=== PATIENT | female | born 1990 | race Caucasian/White ===

== ENCOUNTER 2017-04-30 17:48 | Emergency (ER) | payer OTHER ==
[~2017-04-30] VITALS: Ht 162.6 cm; Wt 109.1 kg
[2017-04-30] MEDS ORDERED: TYLE325T5 PO (17:56)
[2017-04-30] MEDS ORDERED: IBUP-1022 PO (17:56)
[2017-04-30] MEDS ORDERED: MUCI600T37 PO (17:56)
[2017-04-30] MEDS ORDERED: FLON1SPR (19:41)
[2017-04-30] MEDS ORDERED: AUGM875T28 PO (19:41)
[2017-04-30 19:50] VITALS: BP 145/61
== END 2017-04-30 19:51 | disposition home or self-care (01) ==
LOC: M ED 17:48
DX: H66.003 Acute suppurative otitis media without spontaneous rupture of ear drum, bilateral (principal); Z72.0 Tobacco use

== ENCOUNTER 2017-07-07 20:49 | Emergency (ER) | payer OTHER ==
[~2017-07-07] VITALS: Ht 162.6 cm; Wt 113.6 kg
[~2017-07-07 20:49] MED LIST: AUGM875T28 PO; FLON1SPR; IBUP-1022 PO; MUCI600T37 PO; TYLE325T5 PO
[2017-07-07 20:53] VITALS: BP 140/83
[2017-07-07] MEDS ORDERED: HYDROCO/APAP PO (20:59)
[2017-07-07] MEDS ORDERED: TIZA4CAP3 PO (20:59)
[2017-07-07] MEDS ORDERED: GI COCKTAIL 50ML BTL(HYOSCYAMINE/MAALOX/LIDOCAINE VISCOUS)(1:3:1) PO ONE (21:15)
[2017-07-07] MEDS ORDERED: SM A PO (21:58)
[2017-07-07] MEDS ORDERED: FAMOTIDINE 20 MG TAB PO ONE (22:00)
== END 2017-07-07 22:03 | disposition home or self-care (01) ==
LOC: M ED 20:49
DX: K21.9 Gastro-esophageal reflux disease without esophagitis (principal); Z72.0 Tobacco use

== ENCOUNTER 2017-09-21 10:51 | Day surgery (SDC) | payer OTHER ==
[2017-09-21] MEDS: LR 1,000 ML IV (12:06)
[2017-09-21] MEDS ORDERED: MIDAZOLAM INJ 2 MG/2 ML VIAL (J2250) As Ordered (12:19)
[2017-09-21] MEDS ORDERED: PROPOFOL 200 MG/20 ML VIAL As Ordered (12:19)
[2017-09-21] MEDS ORDERED: fentaNYL 100 MCG/2 ML INJECTION (J3010) As Ordered ×2 (12:19→14:16)
[2017-09-21] MEDS ORDERED: LIDOCAINE 2% INJ 100 MG/5 ML SDV (FOR ANES.) As Ordered (12:19)
[2017-09-21] MEDS ORDERED: ROCURONIUM BROMIDE 50 MG/5 ML VIAL As Ordered (12:19)
[2017-09-21] MEDS ORDERED: ONDANSETRON 4MG/2ML VIAL (J2405) As Ordered ×2 (13:14→14:16)
[2017-09-21] MEDS ORDERED: dexameTHASONE 4 MG/ML 1ML VIAL (J1100) As Ordered (13:14)
[2017-09-21] MEDS ORDERED: METOCLOPRAMIDE INJ 10MG/2ML VIAL (J2765) As Ordered (13:14)
[2017-09-21] MEDS ORDERED: KETOROLAC 60 MG/2 ML VIAL (J1885) As Ordered (13:14)
[2017-09-21] MEDS ORDERED: GLYCOPYRROLATE INJ 0.2 MG/ML 2 ML VIAL As Ordered (13:42)
[2017-09-21] MEDS ORDERED: NEOSTIGMINE 10 MG/10 ML VIAL (J2710) As Ordered (13:42)
[2017-09-21] MEDS: LIDOCAINE W/EPINEPHRINE 1% 20ML VIAL As Ordered (14:07)
[2017-09-21] MEDS: BUPIVACAINE HCL 0.25% 30 ML VIAL As Ordered (14:08)
[2017-09-21] MEDS: fentaNYL 100 MCG/2 ML INJECTION (J3010) IV ×4 (14:18→14:35)
[2017-09-21] MEDS: PERCOCET 5MG/325MG TAB PO ×2 (14:43→15:44)
[2017-09-21] MEDS ORDERED: LR 1,000 ML IV (14:45)
[2017-09-21] MEDS ORDERED: NORCO, ANEXSIA 5/325MG TABLET (HYDROcodone/ACETAMINOPHEN) PO (14:45)
== END 2017-09-21 16:00 | disposition home or self-care (01) ==
LOC: M SDC 10:51
DX: K80.18 Calculus of gallbladder with other cholecystitis without obstruction (principal); K21.9 Gastro-esophageal reflux disease without esophagitis; F32.9 Major depressive disorder, single episode, unspecified; E66.01 Morbid (severe) obesity due to excess calories; F17.210 Nicotine dependence, cigarettes, uncomplicated
CPT/HCPCS: 47562

== ENCOUNTER 2017-10-13 13:46 | Emergency (ER) | payer OTHER | END 2017-10-13 15:39 | disposition left against medical advice (07) | LOC: M ED 13:46 | DX: Z53.21 Procedure and treatment not carried out due to patient leaving prior to being seen by health care provider (principal) ==

== ENCOUNTER → 2017-11-13 | Outpatient (REF) | payer OTHER | LOC: M SFHCLERA 14:37 | DX: R30.0 Dysuria (principal) ==

== ENCOUNTER 2018-04-29 10:52 | Day surgery (SDC) | payer OTHER ==
[2018-04-29] MEDS ORDERED: PROPOFOL 200 MG/20 ML VIAL As Ordered ×2 (12:09→13:42)
[2018-04-29] MEDS ORDERED: LIDOCAINE 2% INJ 100 MG/5 ML SDV (FOR ANES.) As Ordered (12:09)
[2018-04-29] MEDS ORDERED: ROCURONIUM BROMIDE 50 MG/5 ML VIAL As Ordered (12:09)
[2018-04-29] MEDS ORDERED: ONDANSETRON 4MG/2ML VIAL (J2405) As Ordered (12:09)
[2018-04-29] MEDS ORDERED: MIDAZOLAM INJ 2 MG/2 ML VIAL (J2250) As Ordered (12:10)
[2018-04-29] MEDS ORDERED: fentaNYL 100 MCG/2 ML INJECTION (J3010) As Ordered ×2 (12:10→14:08)
[2018-04-29] MEDS ORDERED: OXYMETAZOLINE NASAL SPRAY (AFRIN) As Ordered (13:20)
[2018-04-29] MEDS: dexameTHASONE 4 MG/ML 1ML VIAL (J1100) IV (13:38)
[2018-04-29] MEDS: AMPICILLIN SOD/SULBACTAM SOD 3 GM in D5W MINI-BAG PLUS 100 ML IV (13:40)
[2018-04-29] MEDS: LIDOCAINE 2% W/ EPINEPHRINE 1.7 ML DENTAL INJ As Ordered (13:50)
[2018-04-29] MEDS ORDERED: NEOSTIGMINE 10 MG/10 ML VIAL (J2710) As Ordered (13:54)
[2018-04-29] MEDS ORDERED: GLYCOPYRROLATE INJ 0.2 MG/ML 2 ML VIAL As Ordered (13:54)
[2018-04-29] MEDS: PERCOCET 5MG/325MG TAB PO (14:58)
[2018-04-29] MEDS ORDERED: fentaNYL 100 MCG/2 ML INJECTION (J3010) IV (15:00)
[2018-04-29] MEDS ORDERED: LR 1,000 ML IV (15:00)
[2018-04-29] MEDS ORDERED: ONDANSETRON 4MG/2ML VIAL (J2405) IV (15:00)
== END 2018-04-29 15:46 | disposition home or self-care (01) ==
LOC: M SDC 15:46
DX: K02.9 Dental caries, unspecified (principal); K01.1 Impacted teeth; F40.232 Fear of other medical care; K21.9 Gastro-esophageal reflux disease without esophagitis; R06.83 Snoring; E66.9 Obesity, unspecified; Z68.41 Body mass index [BMI] 40.0-44.9, adult; Z79.899 Other long term (current) drug therapy; Z72.0 Tobacco use; Z98.51 Tubal ligation status; Z87.891 Personal history of nicotine dependence
CPT/HCPCS: D9223

== ENCOUNTER → 2018-08-04 | Outpatient (REF) | payer OTHER ==
[~2018-08-04] MED LIST changes: +HYDR-3713 PO; +HYDROCO/APAP PO; +IBUP80TA PO; +RANI300T PO; +SM A PO; +TIZA4CAP PO
== END ==
LOC: M SFHCLERA 14:45
PROVIDERS: ATTEND Physician Assistant
DX: J02.9 Acute pharyngitis, unspecified (principal)

== ENCOUNTER → 2018-08-15 | Outpatient (REF) | payer OTHER | LOC: M SFHCLERA 18:44 | PROVIDERS: ATTEND Physician Assistant | DX: N89.8 Other specified noninflammatory disorders of vagina (principal) ==

== ENCOUNTER → 2018-11-01 | Outpatient (CLI) | payer OTHER ==
[~2018-11-01] MED LIST changes: +E-Z-GAS II EFFERVESCENT PACKET (SODIUM BICARB./CITRIC ACID/SIMETHICONE) As Ordered ONE; +E-Z-HD 98% w/w 340GM SUSP BTL As Ordered ONE; +E-Z-PAQUE 96% w/w SUSP 176GM BTL As Ordered ONE
--- NOTE | 2018-11-01 16:37 | REP ---
Upper GI air contrast The procedure was performed under the direct supervision of Dr. Grajeda. The images were reviewed with Dr. Grajeda The manager education film shows no organomegaly or pathological masses. The intestinal gas pattern is non-specific. Liquid barium and gas producing crystals were given in the erect position as well as liquid barium in the prone oblique position in order to perform a double contrast upper GI examination. The oral and pharyngeal stages of deglutition are unremarkable. Esophageal transport is prompt and efficient and there is no esophagitis, stricture, mucosal ring or hiatal hernia. Gastroesophageal reflux is not demonstrated on this examination. The stomach barroso are normally outlined . The rugal folds are smooth and regular. There is no gastritis neoplasm or ulcer disease. The duodenal barroso are normally outlined . The mucosal folds are smooth and regular. There is no duodenitis pancreatitis peptic ulcer disease or neoplasm. The visualized portion of the proximal small bowel appears normal in course and caliber. Impression: Essentially unremarkable double contrast upper GI examination. 0.6 minutes of fluoro time was utilized for this procedure. Reviewed by PASHA Cleveland 11/01/2018 03:54 P Electronically Signed by Nik Grajeda MD 11/01/2018 04:28 P
== END ==
LOC: M RAD 08:48
PROVIDERS: ATTEND Otolaryngology
DX: Z87.19 Personal history of other diseases of the digestive system (principal)

== ENCOUNTER → 2018-12-10 | Outpatient (REF) | payer OTHER ==
[~2018-12-10] MED LIST changes: -E-Z-GAS II EFFERVESCENT PACKET (SODIUM BICARB./CITRIC ACID/SIMETHICONE) As Ordered ONE; -E-Z-HD 98% w/w 340GM SUSP BTL As Ordered ONE; -E-Z-PAQUE 96% w/w SUSP 176GM BTL As Ordered ONE
[2018-12-10 11:37] LABS: BASO # 0.1 10^3/uL (0.0-0.2); BASO % 0.7 % (0.0-1.0); EOS # 0.3 10^3/uL (0.0-0.50); EOS % 2.3 % (0.0-3.0); HEMATOCRIT 43.9 % (36.0-47.0); HEMOGLOBIN 14.3 g/dl (12.0-15.5); LYMPH % 32.8 % (24.0-44.0); MEAN CORPUSCULAR HEMOGLOBIN 29.6 pg (27.0-33.0); MEAN CORPUSCULAR HGB CONC 32.6 g/dl (32.0-36.5); MEAN CORPUSCULAR VOLUME 90.9 fl (80.0-96.0); MONO # 0.7 10^3/uL (0.0-0.8); MONO % 5.9 % (0.0-5.0); NEUTROPHILS # 6.9 10^3/uL (1.8-7.7); NEUTROPHILS % 57.6 % (36.0-66.0); PLATELET COUNT, AUTOMATED 328 10^3/uL (150-450); RED BLOOD COUNT 4.83 10^6/uL (4.00-5.40); WHITE BLOOD COUNT 12.1 10^3/uL (4.0-10.0)
[2018-12-10 12:19] LABS: ALBUMIN 3.4 GM/DL (3.2-5.2); ALT/SGPT 34 U/L (12-78); BILIRUBIN,TOTAL 0.3 MG/DL (0.2-1.0); BLOOD UREA NITROGEN 14 MG/DL (7-18); CALCIUM LEVEL 8.4 MG/DL (8.5-10.1); CARBON DIOXIDE LEVEL 24 MEQ/L (21-32); CHLORIDE LEVEL 107 MEQ/L (98-107); CHOLESTEROL LEVEL 171 MG/DL (<200); CHOLESTEROL RISK RATIO 6.576 (<5); CREATININE FOR GFR 0.91 MG/DL (0.55-1.30); FREE T4 1.04 NG/DL (0.76-1.46); GLOMERULAR FILTRATION RATE > 60.0 (>60); GLUCOSE, FASTING 94 MG/DL (70-100); HDL CHOLESTEROL 26 MG/DL (>40); LDL CHOLESTEROL 121 MG/DL (<100); NON-HDL-C 145 MG/DL; POTASSIUM SERUM 4.2 MEQ/L (3.5-5.1); SODIUM LEVEL 140 MEQ/L (136-145); TOTAL PROTEIN 7.1 GM/DL (6.4-8.2); TRIGLYCERIDES LEVEL 120 MG/DL (<150)
== END ==
LOC: M SFHCLERA 10:07
PROVIDERS: ATTEND Nurse Practitioner Family
DX: Z13.220 Encounter for screening for lipoid disorders (principal); R53.82 Chronic fatigue, unspecified

== ENCOUNTER → 2019-08-04 | Outpatient (REF) | payer OTHER ==
[~2019-08-04] MED LIST changes: +RA A PO; -SM A PO
== END ==
LOC: M SFHCLERA 19:05
PROVIDERS: ATTEND Nurse Practitioner Family
DX: J02.9 Acute pharyngitis, unspecified (principal)

== ENCOUNTER → 2021-04-19 | Outpatient (CLI) | payer OTHER ==
--- NOTE | 2021-04-19 12:27 | REP ---
INDICATION: PAIN/FALL INITIAL ENCOUNTER. COMPARISON: None. TECHNIQUE: Four views FINDINGS: The joint spaces are symmetric and relatively well maintained. There is no evidence of acute fracture or destructive osseous lesion. IMPRESSION: Negative hand. <Electronically signed by Brandon Serrato > 04/19/21 [id number]
[2021-04-19 16:40] LABS: BASO # 0.1 10^3/uL (0.0-0.2); BASO % 0.5 % (0.0-1.0); EOS # 0.2 10^3/uL (0.0-0.5); EOS % 1.8 % (0.0-3.0); HEMATOCRIT 46.3 % (36.0-47.0); HEMOGLOBIN 15.2 g/dl (12.0-15.5); LYMPH % 30.7 % (24.0-44.0); MEAN CORPUSCULAR HEMOGLOBIN 30.3 pg (27.0-33.0); MEAN CORPUSCULAR HGB CONC 32.8 g/dl (32.0-36.5); MEAN CORPUSCULAR VOLUME 92.4 fl (80.0-96.0); MONO # 0.8 10^3/uL (0.0-0.8); NEUTROPHILS # 7.8 10^3/uL (1.5-8.5); NEUTROPHILS % 60.5 % (36.0-66.0); PLATELET COUNT, AUTOMATED 356 10^3/uL (150-450); RED BLOOD COUNT 5.01 10^6/uL (4.00-5.40); WHITE BLOOD COUNT 12.9 10^3/uL (4.0-10.0)
[2021-04-19 16:48] LABS: ALBUMIN 3.2 GM/DL (3.2-5.2); ALT/SGPT 43 U/L (12-78); BILIRUBIN,TOTAL 0.3 MG/DL (0.2-1.0); BLOOD UREA NITROGEN 8 MG/DL (7-18); CALCIUM LEVEL 8.8 MG/DL (8.5-10.1); CARBON DIOXIDE LEVEL 28 MEQ/L (21-32); CHLORIDE LEVEL 107 MEQ/L (98-107); CHOLESTEROL LEVEL 188 MG/DL (<200); CHOLESTEROL RISK RATIO 6.266 (<5); CREATININE FOR GFR 0.75 MG/DL (0.55-1.30); GLOMERULAR FILTRATION RATE > 60.0 (>60); GLUCOSE, FASTING 157 MG/DL (70-100); HDL CHOLESTEROL 30 MG/DL (>40); LDL CHOLESTEROL 132 MG/DL (<100); NON-HDL-C 158 MG/DL; POTASSIUM SERUM 4.2 MEQ/L (3.5-5.1); SODIUM LEVEL 140 MEQ/L (136-145); TOTAL PROTEIN 6.6 GM/DL (6.4-8.2); TRIGLYCERIDES LEVEL 132 MG/DL (<150)
[2021-04-19 17:24] LABS: HEMOGLOBIN A1c 7.5 %
== END ==
LOC: M WUC 11:42
PROVIDERS: ATTEND Nurse Practitioner Family
DX: Z00.00 Encounter for general adult medical examination without abnormal findings (principal); M79.642 Pain in left hand; Z91.81 History of falling

== ENCOUNTER → 2021-04-22 | Outpatient (REF) | payer OTHER | LOC: M SFHCLERA 17:47 | PROVIDERS: ATTEND Nurse Practitioner Family | DX: Z09 Encounter for follow-up examination after completed treatment for conditions other than malignant neoplasm (principal); Z53.9 Procedure and treatment not carried out, unspecified reason ==

== ENCOUNTER → 2021-10-13 | Outpatient (REF) | payer OTHER | LOC: M SFHCLERA 11:18 | PROVIDERS: ATTEND Student in an Organized Health Care Education/Training Program | DX: Z12.4 Encounter for screening for malignant neoplasm of cervix (principal) ==

== ENCOUNTER → 2022-03-16 | Outpatient (CLI) | payer OTHER ==
[2022-03-16 17:32] LABS: BASO # 0.1 10^3/uL (0.0-0.2); BASO % 0.7 % (0.0-1.0); EOS # 0.2 10^3/uL (0.0-0.5); EOS % 1.8 % (0.0-3.0); HEMATOCRIT 45.4 % (36.0-47.0); HEMOGLOBIN 15.6 g/dl (12.0-15.5); LYMPH # 3.2 10^3/uL (1.5-5.0); LYMPH % 36.4 % (24.0-44.0); MEAN CORPUSCULAR HEMOGLOBIN 31.4 pg (27.0-33.0); MEAN CORPUSCULAR HGB CONC 34.4 g/dl (32.0-36.5); MEAN CORPUSCULAR VOLUME 91.3 fl (80.0-96.0); MONO # 0.7 10^3/uL (0.0-0.8); MONO % 7.6 % (2.0-8.0); NEUTROPHILS # 4.7 10^3/uL (1.5-8.5); NEUTROPHILS % 52.9 % (36.0-66.0); PLATELET COUNT, AUTOMATED 261 10^3/uL (150-450); RED BLOOD COUNT 4.97 10^6/uL (4.00-5.40); WHITE BLOOD COUNT 8.9 10^3/uL (4.0-10.0)
[2022-03-16 17:36] LABS: BLOOD UREA NITROGEN 8 MG/DL (7-18); CALCIUM LEVEL 8.9 MG/DL (8.5-10.1); CARBON DIOXIDE LEVEL 26 MEQ/L (21-32); CHLORIDE LEVEL 105 MEQ/L (98-107); CREATININE FOR GFR 0.64 MG/DL (0.55-1.30); GLOMERULAR FILTRATION RATE > 60.0 (>60); GLUCOSE, FASTING 320 MG/DL (70-100); POTASSIUM SERUM 4.1 MEQ/L (3.5-5.1); SODIUM LEVEL 136 MEQ/L (136-145)
[2022-03-16 17:51] LABS: MALB URINE SIEMENS 13.5 MG/L; MAU/CREAT RATIO 8.6 MCG/MG (0.0-30.0)
[2022-03-16 19:43] LABS: HEMOGLOBIN A1c 11.3 %
== END ==
LOC: M WUC 12:49
PROVIDERS: ATTEND Family Medicine
DX: E11.9 Type 2 diabetes mellitus without complications (principal); D72.829 Elevated white blood cell count, unspecified

== ENCOUNTER → 2022-04-19 | Outpatient (CLI) | payer OTHER | LOC: M WUC 11:04 | PROVIDERS: ATTEND Family Medicine | DX: E11.65 Type 2 diabetes mellitus with hyperglycemia (principal) ==

== ENCOUNTER 2024-06-11 10:03 | Day surgery (SDC) | payer OTHER ==
[~2024-06-11] VITALS: Ht 162.6 cm; Wt 99.8 kg
[~2024-06-11 10:03] MED LIST changes: +ARNU1INH INH; +DOXE75CA2 PO; +FEXO-117 PO; +HYDR-643 PO; +JARD1TAB PO; +MIDAZOLAM INJ 2MG/2ML VIAL As Ordered ONE; +OMEP-173 PO; +PHENYLEPHRINE 10% OPHTH SOL 5ML OS PRN; +PROA1AER2 INH; +TRUL0.5I SC; +VENL75CA47 PO; +fentaNYL 100 MCG/2 ML INJECTION As Ordered ONE
[2024-06-11] MEDS: ATROPINE SULFATE 1% OPHTH SOLN 2ML BTL OS SCH (10:38)
[2024-06-11] MEDS: LIDOCAINE 3.5 % 1ML OPHTH TOPICAL GEL OU ONE (10:38)
[2024-06-11] MEDS: OFLOXACIN 0.3 % (OCUFLOX) OPTH SOL 5ML OS ONE (10:38)
[2024-06-11] MEDS: PHENYLEPHRINE 2.5% OPHTH SOL 2ML OS SCH (10:39)
[2024-06-11] MEDS: TROPICAMIDE 1% OPHTH SOLN 15ML OS SCH (10:39)
[2024-06-11] MEDS: BSS IRRIG/VANCO(10MG)/TOBRA(5MG)/EPINEPH(1:1000-0.5CC)500ML BAG-ORONLY As Ordered ONE (11:50)
[2024-06-11] MEDS: CEFUROXIME 1MG/0.1ML INTRACAMERAL INJ As Ordered ONE (11:50)
[2024-06-11] MEDS: LIDOCAINE 1% SDV 5ML VIAL As Ordered ONE (11:50)
[2024-06-11 12:10] VITALS: BP 129/60; TEMP 97.7; O2SAT 99
== END 2024-06-11 12:46 | disposition home or self-care (01) ==
LOC: M SDC 10:03
PROVIDERS: ATTEND Ophthalmology
DX: H25.12 Age-related nuclear cataract, left eye (principal)
CPT/HCPCS: 66984; J0697; J2250; J3010; V2632

== ENCOUNTER 2024-06-18 07:31 | Day surgery (SDC) | payer OTHER ==
[~2024-06-18] VITALS: Ht 162.6 cm; Wt 98.5 kg
[~2024-06-18 07:31] MED LIST changes: -MIDAZOLAM INJ 2MG/2ML VIAL As Ordered ONE; +PHENYLEPHRINE 10% OPHTH SOL 5ML OD PRN; -PHENYLEPHRINE 10% OPHTH SOL 5ML OS PRN; -fentaNYL 100 MCG/2 ML INJECTION As Ordered ONE
[2024-06-18] MEDS ORDERED: MIDAZOLAM INJ 2MG/2ML VIAL As Ordered ONE (07:35)
[2024-06-18] MEDS ORDERED: fentaNYL 100 MCG/2 ML INJECTION As Ordered ONE (07:35)
[2024-06-18] MEDS: TROPICAMIDE 1% OPHTH SOLN 15ML OD SCH (08:16)
[2024-06-18] MEDS: ATROPINE SULFATE 1% OPHTH SOLN 2ML BTL OD SCH (08:16)
[2024-06-18] MEDS: PHENYLEPHRINE 2.5% OPHTH SOL 2ML OD SCH (08:16)
[2024-06-18] MEDS: LIDOCAINE 3.5 % 1ML OPHTH TOPICAL GEL OU ONE (08:16)
[2024-06-18] MEDS: OFLOXACIN 0.3 % (OCUFLOX) OPTH SOL 5ML OD ONE (08:16)
[2024-06-18] MEDS ORDERED: DEXTROSE 50% 50ML SYRINGE IV PRN (08:20)
[2024-06-18] MEDS ORDERED: GLUCOSE 4 GM CHEW PO PRN (08:20)
[2024-06-18] MEDS ORDERED: GLUCAGON INJ 1MG VIAL SC PRN (08:20)
[2024-06-18] MEDS: INSULIN LISPRO (NovoLOG) PER UNIT SC PRN ×2 (08:37→09:57)
[2024-06-18] MEDS: POVIDONE-IODINE 5% OPHTH PREP SOL 30ML As Ordered ONE (09:26)
[2024-06-18] MEDS: BSS IRRIG/VANCO(10MG)/TOBRA(5MG)/EPINEPH(1:1000-0.5CC)500ML BAG-ORONLY As Ordered ONE (09:35)
[2024-06-18] MEDS: LIDOCAINE 1% SDV 5ML VIAL As Ordered ONE (09:35)
[2024-06-18] MEDS: CEFUROXIME 1MG/0.1ML INTRACAMERAL INJ As Ordered ONE (09:41)
[2024-06-18 09:45] VITALS: BP 119/87; TEMP 96.9; O2SAT 99
== END 2024-06-18 10:26 | disposition home or self-care (01) ==
LOC: M SDC 07:31
PROVIDERS: ATTEND Ophthalmology
DX: E11.36 Type 2 diabetes mellitus with diabetic cataract (principal); H25.11 Age-related nuclear cataract, right eye; J45.909 Unspecified asthma, uncomplicated; K21.9 Gastro-esophageal reflux disease without esophagitis; Z79.899 Other long term (current) drug therapy; Z79.51 Long term (current) use of inhaled steroids; Z79.84 Long term (current) use of oral hypoglycemic drugs; Z79.85 Long-term (current) use of injectable non-insulin antidiabetic drugs; Z90.89 Acquired absence of other organs
CPT/HCPCS: 66984; J0697; J2250; J3010; V2632